=== PATIENT | male | born 1970 | race African-American/Black ===

== ENCOUNTER 2016-08-17 18:23 | Emergency (ER) | payer SELFPAY ==
[~2016-08-17] VITALS: Ht 182.9 cm; Wt 93.0 kg
[~2016-08-17 18:23] MED LIST: NAPR500 PO; Z.0.NO CURRENT MEDS
[2016-08-17 18:27] VITALS: BP 158/89; PULSE 90; RESP 15; TEMP 97.8; O2SAT 98
[2016-08-17] MEDS ORDERED: IBUPROFEN 800 MG TAB PO ONE (18:45)
--- NOTE | 2016-08-17 18:45 | PD ---
HPI Chief Complaint: Musculoskeletal Complaint Time Seen by Provider: 18:42 Travel History International Travel<30 days: No Contact w/Intl Traveler<30days: No Traveled to known affect area: No History of Present Illness HPI 46-year-old male presents to the emergency department complaint of right foot pain after dropping fridge on his foot last night while moving it. Denies paresthesias, loss patient. Has been walking on the affected extremity on the heel of his foot. Denies fever, vomiting. Has not elevated or ice the foot. Took Aleve last night with minimal relief of pain. No known allergies. Has no other medical complaints. No other modifying factors or associated signs and symptoms. PFSH Social History Alcohol Use: No Tobacco Use: Yes Substance Use: No Allergies-Medications (Allergen,Severity, Reaction): Coded Allergies: No Known Allergies (Verified , 10/18/15) Reported Meds & Prescriptions Reported Meds & Active Scripts Active Naprosyn (Naproxen) 500 Mg Tab 500 Mg PO Q12HR PRN Reported No Current Meds (Miscellaneous Medication) Misc Review of Systems Except as stated in HPI: all other systems reviewed are Neg Physical Exam Narrative GENERAL: Well-nourished, well-developed male patient, in no acute distress SKIN: Warm and dry. HEAD: Atraumatic. Normocephalic. EYES: Pupils equal and round. No scleral icterus. No injection or drainage. ENT: Mucosa pink and moist. Airway patent. NECK: Trachea midline. CARDIOVASCULAR: Regular rate. RESPIRATORY: No accessory muscle use. GASTROINTESTINAL: Flat. MUSCULOSKELETAL: Right foot is edematous and tender to palpation to the dorsal aspect; no obvious deformity; sensory intact to all toes; without erythema or ecchymosis noted. Right lower extremity is supple and non-tense with 2+ pedal pulse and sensory intact. No obvious deformities. No clubbing. No cyanosis. No edema. NEUROLOGICAL: Awake and alert. Oriented 3. No obvious cranial nerve deficits. Motor grossly within normal limits. Normal speech. PSYCHIATRIC: Appropriate mood and affect; insight and judgment normal. Data Data Last Documented VS Vital Signs Date Time Temp Pulse Resp B/P Pulse Ox O2 Delivery O2 Flow Rate FiO2 08/17/16 18:27 97.8 90 15 158/89 98 Orders Ibuprofen (Motrin) (08/17/16 18:45) Foot, Complete ([id number]) (08/17/16 18:45) Ice/Cold Pack (08/17/16 18:45) Crutches (08/17/16 18:45) MDM Medical Decision Making Medical Screen Exam Complete: Yes Emergency Medical Condition: Yes Medical Record Reviewed: Yes Differential Diagnosis Fracture, contusion, dislocation, sprain, crush injury Narrative Course 46-year-old male with right foot injury. Ice pack and ibuprofen ordered. Crutches ordered for support. Right foot x-ray ordered. 1900: Report given to John Dow PA-C at change of shift. See his note for patient disposition. María Soni Aug 17, 2016 18:45
--- NOTE | 2016-08-17 19:17 | RADRPT ---
EXAM DATE/TIME: 08/17/2016 19:11 [facility] COMPARISON: No previous studies available for comparison. INDICATIONS : Right foot pain after a fridge fell on his foot. Pain and swelling on the lateral side. MEDICAL HISTORY : None. SURGICAL HISTORY : None. ENCOUNTER: Initial ACUITY: 1 day PAIN SCORE: 10/10 LOCATION: Right foot. FINDINGS: Three view examination of the right foot demonstrates soft tissue swelling without dislocation, or fr acture. The tarsal bones appear intact. The interphalangeal and metatarsophalangeal joints are int act. The calcaneus is intact. Bony mineralization is normal. Small plantar calcaneal spur. CONCLUSION: Soft tissue swelling laterally without fracture.. Titi Braga MD on August 17, 2016 at 19:14 Board Certified Radiologist. This report was verified electronically.
[2016-08-17] MEDS ORDERED: DICL75TA PO (19:20)
--- NOTE | 2016-08-17 19:23 | PD ---
Physical Exam Date Seen by Provider: Aug 17, 2016 Time Seen by Provider: 19:20 Data Data Last Documented VS Vital Signs Date Time Temp Pulse Resp B/P Pulse Ox O2 Delivery O2 Flow Rate FiO2 08/17/16 18:57 70 18 08/17/16 18:27 97.8 158/89 98 Orders Ibuprofen (Motrin) (08/17/16 18:45) Foot, Complete ([id number]) (08/17/16 18:45) Ice/Cold Pack (08/17/16 18:45) Crutches (08/17/16 18:45) MDM Medical Record Reviewed: Yes Supervised Visit with FARRAH: No Interpretation(s) Right foot: Negative for acute fracture. Differential Diagnosis MDM: High Differential diagnoses: Fracture, sprain, strain, dislocation, contusion, neurovascular injury Narrative Course The x-ray of the right foot is negative for acute trauma. Patient given Blayne wrap, crutches and Motrin 800 mg by mouth. This is right foot contusion/crush injury Diagnosis Primary Impression: right foot contusion/crush injury Patient Instructions: General Instructions Departure Forms: Tests/Procedures, Work Release Special Instructions: No work 3 days. Additional Instruction: Rest. Elevation. Ice packs for the next 3 days. Blayne wrap and crutches. No weight-bearing and then progress to weight-bearing as tolerated. Medications as directed Follow-up with an orthopedist or your doctor in one week. Return to the ER if any problems Med/Other Pt SpecificInfo: Prescription(s) given, Orthopedic Instructions Scripts Diclofenac Sodium DR 75 Mg Tabdr75 Mg PO BID #20 TAB Prov:Bela Reilly MD 08/17/16 Disposition: 01 DISCHARGE HOME Condition: Stable John Dow Aug 17, 2016 19:23
== END 2016-08-17 20:25 | disposition home or self-care (01) ==
LOC: NEPK 18:23
DX: S97.81XA Crushing injury of right foot, initial encounter (principal); S90.31XA Contusion of right foot, initial encounter; W20.8XXA Other cause of strike by thrown, projected or falling object, initial encounter; Y93.89 Activity, other specified; Y92.000 Kitchen of unspecified non-institutional (private) residence as the place of occurrence of the external cause
CPT/HCPCS: 73630; 99283; E0113